=== PATIENT | male | born 1975 | race Two or more races ===

== ENCOUNTER 2017-01-03 21:13 | Emergency (ER) | payer SELFPAY ==
[~2017-01-03] VITALS: Ht 167.6 cm; Wt 63.5 kg
--- NOTE | 2017-01-03 21:15 | NUR ---
PT BIBRA TO ER BED 14. PER REPORT, ETOH. NO OBVIOUS HEAD TRAUMA NOFTED. SLEEPING BUT AROUSABLE. GOWNED AND PLACED ON MONITOR. IVORIAN SPEAKING. PLACED ON MONITOR. AWAITING MD CUNHA.
[2017-01-03] MEDS ORDERED: IV NS 0.9% 1,000 ML BAG IV ONE (21:30)
[2017-01-03] MEDS ORDERED: Thiamine 100 MG in IV D5W 50 ML IV SCH ×4 (21:30)
[2017-01-03] MEDS ORDERED: IV SET PRIMARY PUMP SET 1 EA INFUS.SET MC ONE (21:44)
[2017-01-03] MEDS ORDERED: IV D5W 50 ML IV ONE (21:44)
[2017-01-03] MEDS ORDERED: IV NS 0.9% 1,000 ML ONE (21:44)
[2017-01-03] MEDS ORDERED: IV SET PRIMARY 1 EA INFUS.SET MC ONE (21:44)
[2017-01-03] MEDS ORDERED: Thiamine 100 MG/ML VIAL ONE (21:44)
[2017-01-03 22:09] LABS: HEMATOCRIT 38 % (39-51); HEMOGLOBIN 11.6 g/dL (13.5-17.5); LYMPHOCYTES # (AUTO) 1.5 /CMM (0.8-4.8); LYMPHOCYTES % (AUTO) 41.1 % (20.0-44.0); MEAN CORPUSCULAR HEMOGLOBIN 25 PG (26.0-33.0); MEAN CORPUSCULAR HGB CONC 31 g/dl (31.0-36.0); MEAN CORPUSCULAR VOLUME 81 fL (80-96); MONOCYTES # (AUTO) 0.5 /CMM (0.1-1.30); MONOCYTES % (AUTO) 12.7 % (2.0-12.0); NEUTROPHILS # (AUTO) 1.7 /CMM (1.8-8.9); NEUTROPHILS % (AUTO) 46.2 % (43.0-81.0); PLATELET COUNT (AUTO) 204 /CMM (150-450); RDW COEFFICIENT OF VARIATION 20.8 (11.5-15.0); RED BLOOD CELL COUNT(AUTO) 4.64 MIL/uL (4.5-6.0); WHITE BLOOD COUNT (AUTO) 3.7 K/uL (4.3-11.0)
[2017-01-03 22:15] LABS: ALBUMIN 3.8 g/dL (3.4-5.0); BILIRUBIN,DIRECT 0.1 mg/dL (0.0-0.2); BILIRUBIN,TOTAL 0.4 mg/dL (0.2-1.0); CALCIUM, SERUM 8.1 mg/dL (8.5-10.1); CREATININE 0.6 mg/dL (0.6-1.3); POTASSIUM 4.2 mmol/L (3.5-5.1); TOTAL PROTEIN, SERUM 9.1 g/dL (6.4-8.2)
[2017-01-03 22:16] LABS: SALICYLATE 1.5 mg/dL (2.8-20.0)
--- NOTE | 2017-01-03 22:16 | NUR ---
DR DAILEY AT BEDSIDE FOR EVAL.
--- NOTE | 2017-01-03 22:40 | NUR ---
PT TO RADIOLOGY FOR HEAD CT SCAN VIA [facility].
--- NOTE | 2017-01-03 23:21 | NUR ---
REPORT TO [facility] FOR [facility].
--- NOTE | 2017-01-04 00:37 | NUR ---
PT RESTING COMFORTABLY AT THIS TIME, NO ACUTE S/S OF DISTRESS NOTED AT THIS TIME. WILL CONTINUE WITH PLAN TO D/C ONCE CLINICALLY SOBER
--- NOTE | 2017-01-04 05:17 | NUR ---
pt requesting to be discharged home. pt ok to be discharged per dr baugh. Patient discharged to home in stable condition. Written and verbal after care instructions given. Patient verbalizes understanding of instruction.Patient is awake and alert to self, day, and place. pt ambulatory with a steady gait
[2017-01-04 05:18] VITALS: BP 115/72
== END 2017-01-04 05:18 | disposition home or self-care (01) ==
LOC: ER 21:17 → EDBD 21:17 → ER 01-04 05:18
DX: F10.129 Alcohol abuse with intoxication, unspecified (principal)
CPT/HCPCS: 36415; 70450; 80048; 80076; 80329; 85025; 96365; 99285; A4606; G0480 ×2; J3411; J7030; J7060; Z7610; G6039-TC